=== PATIENT | female | born 1985 ===

== ENCOUNTER 2022-05-22 09:44 | Inpatient (IN) | payer OTHER ==
[~2022-05-22] VITALS: Ht 162.6 cm; Wt 91.2 kg
[2022-05-22] MEDS ORDERED: TERBUTALINE SULFATE 1 MG/ML VIAL SUBCUT ONE (13:00)
[2022-05-22] MEDS ORDERED: LR 1,000 ML IV SCH (13:00)
[2022-05-22] MEDS ORDERED: DINOPROSTONE 10 MG SUPP VG ONE (13:00)
[2022-05-22] MEDS ORDERED: NALBUPHINE HCL 10 MG/ML AMP IVP PRN (13:00)
[2022-05-22 13:32] LABS: BASOPHILS % (AUTO) 0.7 % (0.0-2.0); EOSINOPHILS # (AUTO) 0.1 K/uL (0.0-0.4); EOSINOPHILS % (AUTO) 1.7 % (0.0-4.0); HEMATOCRIT 38.3 % (36-48); HEMOGLOBIN 12.7 g/dL (12.0-16.0); LYMPHOCYTES # (AUTO) 2.1 K/uL (1.0-5.5); LYMPHOCYTES % (AUTO) 29.3 % (20.5-51.5); MEAN CORPUSCULAR HEMOGLOBIN 29 pg (27-31); MEAN CORPUSCULAR HGB CONC 33 % (32-36); MEAN CORPUSCULAR VOLUME 87 fL (79.0-98.0); MONOCYTES # (AUTO) 0.7 K/uL (0.0-1.0); MONOCYTES % (AUTO) 9.7 % (1.7-9.3); NEUTROPHILS # (AUTO) 4.3 K/uL (1.8-7.7); NEUTROPHILS % (AUTO) 58.6 % (40.0-70.0); PLATELET COUNT (AUTO) 272 K/uL (130-430); RED BLOOD CELL COUNT(AUTO) 4.39 MIL/uL (4.2-6.2); RED CELL DISTRIBUTION WIDTH 14.6 % (9.0-15.0); WHITE BLOOD COUNT (AUTO) 7.3 K/uL (4.8-10.8)
[2022-05-22 23:13] VITALS: BP_SYST 108
[2022-05-23] MEDS ORDERED: FENT2mCg/mL-ROPIVA0.2%/NS EPID 200 ML EP SCH (02:45)
[2022-05-23] MEDS ORDERED: ONDANSETRON HCL 4 MG/2 ML VIAL IVP PRN ×2 (02:45→09:15)
[2022-05-23] MEDS ORDERED: ROPIVACAINE HCL/PF 0.2% 200 ML ONE (02:46)
[2022-05-23] MEDS ORDERED: fentaNYL CITRATE/PF 100 MCG/2 ML AMP ONE (02:46)
[2022-05-23] MEDS ORDERED: OXYCODONE/ACETAMINOPHEN 5-325 TABLET PO PRN (08:15)
[2022-05-23] MEDS ORDERED: BISACODYL 10 MG/SUPPOSITORY RC PRN (08:15)
[2022-05-23] MEDS ORDERED: LR 1,000 ML IV SCH (08:15)
[2022-05-23] MEDS ORDERED: LANOLIN 7 GM OINT. TP PRN (08:15)
[2022-05-23] MEDS ORDERED: KETOROLAC TROMETHAMINE 30 MG VIAL IVP PRN ×2 (08:15→09:15)
[2022-05-23] MEDS ORDERED: ANUSOL 1 EA SUPP.RECT (PREPARATION H) RC PRN (08:15)
[2022-05-23] MEDS ORDERED: OXYTOCIN/0.9 % SODIUM CHLORIDE 1,000 ML IV ONE (08:15)
[2022-05-23] MEDS ORDERED: LR 1,000 ML IV.SOLN IV ONE (08:20)
[2022-05-23] MEDS ORDERED: BUPIVACAINE /PF 0.5% 30 ML VIAL ONE (08:20)
[2022-05-23] MEDS ORDERED: METHYLERGONOVINE MALEATE 0.2 MG/ML AMP ONE ×2 (08:20→08:39)
[2022-05-23] MEDS ORDERED: MORPHINE SULFATE 10MG/10ML PF AMP ONE (08:20)
[2022-05-23] MEDS ORDERED: ceFAZolin SODIUM 2 GM VIAL ONE (08:20)
[2022-05-23] MEDS ORDERED: ONDANSETRON HCL 4 MG/2 ML VIAL ONE (08:20)
[2022-05-23] MEDS ORDERED: NS IRRIG SOLN 1000 ML IR ONE (08:20)
[2022-05-23] MEDS: DOCUSATE SODIUM 100 MG CAPSULE PO SCH ×2 (09:00→20:21)
[2022-05-23] MEDS ORDERED: DIPHENHYDRAMINE INJ 50 MG/ML VIAL IM PRN (09:15)
[2022-05-23] MEDS ORDERED: METOCLOPRAMIDE HCL 10 MG/2 ML VIAL IVP PRN (09:15)
[2022-05-23] MEDS ORDERED: NALOXONE HCL 0.4 MG/ML AMP (NARCAN) IVP PRN ×2 (09:15)
[2022-05-23] MEDS ORDERED: MEPERIDINE HCL/PF 25 MG/ML DISP.SYRIN IVP PRN (09:15)
[2022-05-23] MEDS ORDERED: HYDROmorphone 1 MG/ML INJ. CARTRIDGE IVP PRN (09:15)
[2022-05-23] MEDS ORDERED: KETOROLAC TROMETHAMINE 60 MG/2 ML VIAL IM PRN (09:15)
[2022-05-23] MEDS ORDERED: MORPHINE SULFATE 10MG/10ML PF AMP EP SCH (09:15)
[2022-05-23 09:32] VITALS: BP_SYST 106
[2022-05-23] MEDS: SENNOSIDES/DOCUSATE SODIUM 1 TAB TABLET(SENOKOT-S) PO SCH (20:21)
[2022-05-23] MEDS ORDERED: TEMAZEPAM 15 MG CAPSULE PO PRN (21:00)
[2022-05-24] MEDS: IBUPROFEN 800 MG TABLET PO PRN (03:08)
[2022-05-24 07:14] LABS: BASOPHILS % (AUTO) 0.3 % (0.0-2.0); EOSINOPHILS # (AUTO) 0.1 K/uL (0.0-0.4); EOSINOPHILS % (AUTO) 0.8 % (0.0-4.0); HEMATOCRIT 33.3 % (36-48); HEMOGLOBIN 11.1 g/dL (12.0-16.0); LYMPHOCYTES # (AUTO) 2.3 K/uL (1.0-5.5); LYMPHOCYTES % (AUTO) 14.2 % (20.5-51.5); MEAN CORPUSCULAR HEMOGLOBIN 29 pg (27-31); MEAN CORPUSCULAR HGB CONC 33 % (32-36); MEAN CORPUSCULAR VOLUME 87 fL (79.0-98.0); MONOCYTES # (AUTO) 1.2 K/uL (0.0-1.0); MONOCYTES % (AUTO) 7.2 % (1.7-9.3); NEUTROPHILS # (AUTO) 12.6 K/uL (1.8-7.7); NEUTROPHILS % (AUTO) 77.5 % (40.0-70.0); PLATELET COUNT (AUTO) 245 K/uL (130-430); RED BLOOD CELL COUNT(AUTO) 3.81 MIL/uL (4.2-6.2); RED CELL DISTRIBUTION WIDTH 14.8 % (9.0-15.0)
[2022-05-24 07:26] LABS: WHITE BLOOD COUNT (AUTO) 16.3 K/uL (4.8-10.8)
[2022-05-24] MEDS: OXYCODONE/ACETAMINOPHEN 5-325 TABLET PO PRN ×2 (09:40→16:19)
[2022-05-24] MEDS: DOCUSATE SODIUM 100 MG CAPSULE PO SCH ×2 (09:41→21:23)
[2022-05-24] MEDS: SIMETHICONE 80 MG TAB.CHEW PO PRN (16:18)
[2022-05-24] MEDS: SENNOSIDES/DOCUSATE SODIUM 1 TAB TABLET(SENOKOT-S) PO SCH (21:23)
[2022-05-25] MEDS: IBUPROFEN 800 MG TABLET PO PRN ×3 (00:20→12:50)
[2022-05-25] MEDS: OXYCODONE/ACETAMINOPHEN 5-325 TABLET PO PRN (05:45)
[2022-05-25] MEDS: DOCUSATE SODIUM 100 MG CAPSULE PO SCH (08:30)
[2022-05-25] MEDS: SIMETHICONE 80 MG TAB.CHEW PO PRN (08:30)
[2022-05-25] MEDS ORDERED: FLU VACC QS2022-23(6MOS UP)/PF 0.5 ML/SYR SYRINGE I.M. ONE (15:45)
[2022-05-25] MEDS ORDERED: DIPHTH,PERTUSS(ACELL),TET VAC 0.5 ML VIAL (Tdap) I.M. ONE (15:45)
== END 2022-05-25 17:05 | disposition home or self-care (01) | DRG 787 ==
LOC: SPU 09:44
PROVIDERS: ADMIT Obstetrics & Gynecology; ATTEND Obstetrics & Gynecology
PROC: 10D00Z1 Extraction of Products of Conception, Low, Open Approach (ICD-10-PCS; principal; 2022-05-23 08:00)
DX: O76 Abnormality in fetal heart rate and rhythm complicating labor and delivery (principal); R71.0 Precipitous drop in hematocrit; Z3A.41 41 weeks gestation of pregnancy; Z37.0 Single live birth; Z20.822 Contact with and (suspected) exposure to COVID-19
CPT/HCPCS: 36415; 85025; 86592; 86886; 86900; 86901; 94760; J1885; J2210; J2274; J2300; J2405; J3010; J3490; J7120